=== PATIENT | male | born 1995 | race Caucasian/White ===

== ENCOUNTER 2017-04-06 22:10 | Emergency (ER) | payer SELFPAY ==
[2017-04-06] MEDS ORDERED: ClonazePAM 0.5 MG Tab PO ONE (23:38)
--- NOTE | 2017-04-07 01:01 | EDM.PDOCBH ---
ED HPI GENERAL MEDICAL PROBLEM - General Chief Complaint: Behavioral/Psych Stated Complaint: Depression, cutting, ?suicidal Time Seen by Provider: 04/06/17 22:15 Source of Information: Reports: Patient, Police, RN Notes Reviewed History Limitations: Reports: No Limitations - History of Present Illness INITIAL COMMENTS - FREE TEXT/NARRATIVE: Pt. presents to ER after making statements of being depressed and anxious as well as engaging in cutting to his arms and anterior lower thigh area. Denies taking any medications or thoughts of suicidal or homicidal ideation. Pt. states that he has a longstanding history of depression and anxiety, particularly involving his family. States that he was adopted at age 9, and that he has no contact with his biological parents. He has had legal problems which have been embarrassing for his adoptive parents, according to the pt. Pt. has never been on any psychotropic medications other than ritalin as a teen. Duration: Week(s): (weeks to months/symptoms somewhat worse today.) - Related Data Allergies Allergy/AdvReac Type Severity Reaction Status Date / Time No Known Allergies Allergy Verified 04/06/17 23:03 Home Meds: Home Meds . [No Known Home Meds] 04/06/17 [History] Past Medical History Psychiatric History: Reports: Depression, PTSD Social & Family History - Recreational Drug Use Recreational Drug Use: Yes Recreational Drug Type: Reports: Marijuana/Hashish ED ROS GENERAL - Review of Systems Review Of Systems: See Below Constitutional: Reports: No Symptoms HEENT: Reports: No Symptoms Respiratory: Reports: No Symptoms Cardiovascular: Reports: No Symptoms GI/Abdominal: Reports: No Symptoms : Reports: No Symptoms Musculoskeletal: Reports: No Symptoms Skin: Reports: No Symptoms Neurological: Reports: No Symptoms Psychiatric: Reports: Agitation, Anxiety, Mood Lability. Denies: Depression, Hallucinations, Homicidal Ideation, Suicidal Ideation Hematologic/Lymphatic: Reports: No Symptoms Immunologic: Reports: No Symptoms ED EXAM, BEHAVIORAL HEALTH - Physical Exam Exam: See Below Exam Limited By: No Limitations General Appearance: Alert, WD/WN, No Apparent Distress Eye Exam: Bilateral Eye: EOMI, Normal Fundi, Normal Inspection, PERRL Ears: Normal External Exam, Normal Canal, Hearing Grossly Normal, Normal TMs Throat/Mouth: No: Normal Lips, Normal Teeth, Normal Oropharynx Head: Atraumatic, Normocephalic Neck: Normal Inspection, Supple, Full Range of Motion, Lymphadenopathy (L) Respiratory/Chest: No Respiratory Distress, Lungs Clear, Normal Breath Sounds, No Accessory Muscle Use, Chest Non-Tender Cardiovascular: Normal Peripheral Pulses, Regular Rate, Rhythm, No Edema, No Gallop, No JVD, No Murmur, No Rub Extremities: Normal Inspection, Normal Capillary Refill Neurological: Alert, Normal Mood/Affect, CN II-XII Intact, Normal Cognition, Normal Gait, Normal Reflexes, No Motor/Sensory Deficits, Oriented x 3 Psychiatric: Alert, Normal Affect, Normal Cognition, Normal Mood, Poor Eye Contact, Tangential Thoughts, Visual Hallucinations. No: Homicidal Thoughts, Jew Delusions, Suicidal Plan, Suicidal Thoughts, Auditory Hallucinations Skin Exam: Warm, Dry, Intact COURSE, BEHAVIORAL HEALTH COMP - Course Vital Signs: Last Vital Signs Temp 36.1 C 04/06/17 22:10 Pulse 95 04/06/17 22:10 Resp 16 04/06/17 22:10 BP 138/85 04/06/17 22:10 Pulse Ox 95 04/06/17 22:10 Orders, Labs, Meds: Medications Discontinued Medications Generic Name Dose Route Start Last Admin Trade Name Devin PRN Reason Stop Dose Admin Clonazepam 0.5 mg 04/06/17 23:38 04/06/17 23:43 Klonopin PO 04/06/17 23:39 0.5 mg ONETIME ONE Administration Departure - Departure Time of Disposition: 00:30 Disposition: Home, Self-Care 01 Condition: Good Clinical Impression: Anxiety, Depressive disorder - Discharge Information Referrals: PCP,None [Primary Care Provider] - Forms: ED Department Discharge Additional Instructions: Clonazepam 0.5 twice daily for anxiety. Return to ER if you feel like you are a threat to yourself or others.
== END 2017-04-07 00:30 | disposition home or self-care (01) ==
LOC: VM.ED 22:10
DX: F41.8 Other specified anxiety disorders (principal)
CPT/HCPCS: 99284; A9270